=== PATIENT | female | born 1990 | race Two or more races ===

== ENCOUNTER 2019-07-19 17:59 | Emergency (ER) | payer OTHER ==
[~2019-07-19] VITALS: Ht 154.9 cm; Wt 86.2 kg
[2019-07-19 18:55] LABS: BILIRUBIN,URINE NEGATIVE (NEG); CLARITY,URINE TURBID; COLOR,URINE YELLOW; NITRITE,URINE NEGATIVE (NEG); PH,URINE 8.5; PROTEIN,URINE NEGATIVE (NEG-TRACE)
[2019-07-19 19:00] LABS: BACTERIA,URINE 0 /HPF (0-FEW); RBC,URINE 0 /HPF (0-2); SQUAMOUS EPITHELIAL CELL,UR FEW /LPF; WBC,URINE 0 /HPF (0-4)
[2019-07-19 19:01] LABS: AMORPHOUS SEDIMENT,UR PRESENT /HPF
[2019-07-19 19:44] LABS: BASO # 0.1 x10^3/uL (0.0-0.2); BASO % 1 % (0-3); EOS # 0.2 x10^3/uL (0.0-0.7); EOS % 2 % (0-3); HEMATOCRIT 38.8 % (36.0-47.0); HEMOGLOBIN 13.2 g/dL (12.0-15.5); LYMPH # 3.7 x10^3/uL (1.0-4.8); LYMPH % 33 % (24-48); MEAN CORPUSCULAR HEMOGLOBIN 29 pg (25-35); MEAN CORPUSCULAR HGB CONC 34 g/dL (31-37); MEAN CORPUSCULAR VOLUME 85 fL (79-100); MONO # 0.7 x10^3/uL (0.0-1.1); MONO % 6 % (0-9); NEUT # 6.6 x10^3/uL (1.8-7.7); NEUT % 58 % (31-73); PLATELET COUNT 275 x10^3/uL (140-400); RED BLOOD COUNT 4.59 x10^6/uL (3.50-5.40); RED CELL DISTRIBUTION WIDTH 13.3 % (11.5-14.5); WHITE BLOOD COUNT 11.2 x10^3/uL (4.0-11.0)
[2019-07-19 19:52] LABS: CALCIUM 9.1 mg/dL (8.5-10.1); CREATININE 0.8 mg/dL (0.6-1.0); GFR 84.8; POTASSIUM 3.6 mmol/L (3.5-5.1)
[2019-07-19 19:58] LABS: ALBUMIN/GLOBULIN RATIO 1.1 (1.0-1.7); TOTAL BILIRUBIN 0.1 mg/dL (0.2-1.0); TOTAL PROTEIN 7.5 g/dL (6.4-8.2)
--- NOTE | 2019-07-19 20:26 | RAD ---
Exam: Ultrasound OB less than 14 weeks Indication: Abdominal pain and Technique: Real-time grayscale and color Doppler images of the pelvis were obtained by the department burner machine operator. Comparisons: None FINDINGS: Uterus measures 9.0 x 4.8 x 4.4 cm. Endometrium measures 8 mm in thickness. Right ovary measures 4.2 x 2.8 x 2.2 cm. Left ovary measures 3.0 x 2.0 x 1.7 cm. Follicular change in the ovaries bilaterally. Vascular flow identified within the ovaries bilaterally. Small amount of free fluid in the cul-de-sac. IMPRESSION: No gestational sac, pole or yolk sac identified. Intrauterine is not confirmed. Differential considerations include include an early IUP, failed IUP or nonvisualized ectopic. Recommend correlation with serial beta hCG measurements and short-term follow-up ultrasound. Electronically signed by: Kyree Broussard MD (07/19/2019 8:23 PM) [employer]
[2019-07-19 20:41] VITALS: BP 173/81
--- NOTE | 2019-07-19 21:31 | PHYS DOC ---
Past Medical History Past Medical History: No Pertinent History Past Surgical History: No Surgical History Alcohol Use: None Drug Use: None Adult General Chief Complaint Chief Complaint: VAGINAL BLEEDING [facility] Patient is a 28 year old female 6 para 1, 4 miscarriages who presents to the ED today with 8 out of 10 lower abdominal cramping intermittently since Friday. Last menstrual cycle was June 04, 2019. Patient reports 2 weeks ago she had vaginal bleeding which stopped after a couple days. She reports she's been seeing the [facility] and her beta hCGs were doubling since then. She reports on Friday she was seen at [facility] and her beta hCG was 131. Patient denies any vaginal bleeding. Denies any nausea vomiting. Denies any back pain. Review of Systems Review of Systems Constitutional: Denies fever or chills [] Eyes: Denies change in visual acuity, redness, or eye pain [] HENT: Denies nasal congestion or sore throat [] Respiratory: Denies cough or shortness of breath [] Cardiovascular: No additional information not addressed in HPI [] GI: Reports abdominal pain in , denies, nausea, vomiting, bloody stools or diarrhea [] : Denies dysuria or hematuria [] Musculoskeletal: Denies back pain or joint pain [] Integument: Denies rash or skin lesions [] Neurologic: Denies headache, focal weakness or sensory changes [] All other systems were reviewed and found to be within normal limits, except as documented in this note. Allergies Allergies Allergies Coded Allergies Type Severity Reaction Last Updated Verified No Known Drug Allergies 12/14/14 No Physical Exam Physical Exam Constitutional: Well developed, well nourished, no acute distress, non-toxic appearance. [] HENT: Normocephalic, atraumatic, bilateral external ears normal, oropharynx moist, no oral exudates, nose normal. [] Eyes: PERRLA, EOMI, conjunctiva normal, no discharge. [] Neck: Normal range of motion, no tenderness, supple, no stridor. [] Cardiovascular:Heart rate regular rhythm, no murmur [] Lungs & Thorax: Bilateral breath sounds clear to auscultation [] Abdomen: Bowel sounds normal, soft, no tenderness, no masses, no pulsatile masses. [] Pelvic exam External pelvic appears normal, cervix suspicion this, closed, no CMT, no adnexal tenderness, trace amount of white discharge in the vaginal vault Skin: Warm, dry, no erythema, no rash. [] Back: No tenderness, no CVA tenderness. [] Extremities: No tenderness, no cyanosis, no clubbing, ROM intact, no edema. [] Neurologic: Alert and oriented X 3, normal motor function, normal sensory function, no focal deficits noted. [] Psychologic: Affect normal, judgement normal, mood normal. [] Current Patient Data Vital Signs Vital Signs Date Time Temp Pulse Resp B/P (MAP) Pulse Ox O2 Delivery O2 Flow Rate FiO2 07/19/19 20:41 86 16 173/81 (111) 97 Room Air 07/19/19 18:40 98.9 98.9 Lab Values Laboratory Tests Test 07/19/19 18:30 07/19/19 18:51 07/19/19 19:30 Urine Collection Type Unknown Urine Color Yellow Urine Clarity Turbid Urine pH 8.5 Urine Specific [place] 1.025 Urine Protein Negative mg/dL (NEG-TRACE) Urine Glucose (UA) Negative mg/dL (NEG) Urine Ketones (Stick) Negative mg/dL (NEG) Urine Blood Negative (NEG) Urine Nitrite Negative (NEG) Urine Bilirubin Negative (NEG) Urine Urobilinogen Dipstick 1.0 mg/dL (0.2 mg/dL) Urine Leukocyte Esterase Negative (NEG) Urine RBC 0 /HPF (0-2) Urine WBC 0 /HPF (0-4) Urine Squamous Epithelial Cells Few /LPF Urine Amorphous Sediment Present /HPF Urine Bacteria 0 /HPF (0-FEW) Urine Mucus Mod /LPF POC Urine HCG, Qualitative Hcg positive (Negative) White Blood Count 11.2 x10^3/uL (4.0-11.0) H Red Blood Count 4.59 x10^6/uL (3.50-5.40) Hemoglobin 13.2 g/dL (12.0-15.5) Hematocrit 38.8 % (36.0-47.0) Mean Corpuscular Volume 85 fL (79-100) Mean Corpuscular Hemoglobin 29 pg (25-35) Mean Corpuscular Hemoglobin Concent 34 g/dL (31-37) Red Cell Distribution Width 13.3 % (11.5-14.5) Platelet Count 275 x10^3/uL (140-400) Neutrophils (%) (Auto) 58 % (31-73) Lymphocytes (%) (Auto) 33 % (24-48) Monocytes (%) (Auto) 6 % (0-9) Eosinophils (%) (Auto) 2 % (0-3) Basophils (%) (Auto) 1 % (0-3) Neutrophils # (Auto) 6.6 x10^3/uL (1.8-7.7) Lymphocytes # (Auto) 3.7 x10^3/uL (1.0-4.8) Monocytes # (Auto) 0.7 x10^3/uL (0.0-1.1) Eosinophils # (Auto) 0.2 x10^3/uL (0.0-0.7) Basophils # (Auto) 0.1 x10^3/uL (0.0-0.2) Maternal Serum HCG Beta Subunit 121 mIU/mL (0-5) H Sodium Level 139 mmol/L (136-145) Potassium Level 3.6 mmol/L (3.5-5.1) Chloride Level 102 mmol/L (98-107) Carbon Dioxide Level 26 mmol/L (21-32) Anion Gap 11 (6-14) Blood Urea Nitrogen 14 mg/dL (7-20) Creatinine 0.8 mg/dL (0.6-1.0) Estimated GFR (Cockcroft-Gault) 84.8 BUN/Creatinine Ratio 18 (6-20) Glucose Level 104 mg/dL (70-99) H Calcium Level 9.1 mg/dL (8.5-10.1) Total Bilirubin 0.1 mg/dL (0.2-1.0) L Aspartate Amino Transferase (AST) 15 U/L (15-37) Alanine Aminotransferase (ALT) 18 U/L (14-59) Alkaline Phosphatase 70 U/L (46-116) Total Protein 7.5 g/dL (6.4-8.2) Albumin 4.0 g/dL (3.4-5.0) Albumin/Globulin Ratio 1.1 (1.0-1.7) Laboratory Tests 07/19/19 19:30 Laboratory Tests 07/19/19 19:30 Microbiology 07/19/19 Wet Prep - Final, Complete EKG EKG [] Radiology/Procedures Radiology/Procedures []PROCEDURE: OB TRANSVAG Exam: Ultrasound OB less than 14 weeks Indication: Abdominal pain and Technique: Real-time grayscale and color Doppler images of the pelvis were obtained by the department coal crusher operator. Comparisons: None FINDINGS: Uterus measures 9.0 x 4.8 x 4.4 cm. Endometrium measures 8 mm in thickness. Right ovary measures 4.2 x 2.8 x 2.2 cm. Left ovary measures 3.0 x 2.0 x 1.7 cm. Follicular change in the ovaries bilaterally. Vascular flow identified within the ovaries bilaterally. Small amount of free fluid in the cul-de-sac. IMPRESSION: No gestational sac, pole or yolk sac identified. Intrauterine is not confirmed. Differential considerations include include an early IUP, failed IUP or nonvisualized ectopic. Recommend correlation with serial beta hCG measurements and short-term follow-up ultrasound. Electronically signed by: Rupert Handy MD (07/19/2019 8:23 PM) [facility] DICTATED and SIGNED BY: RUPERT HANDY MD DATE: 07/19/192022 Course & Med Decision Making Course & Med Decision Making Pertinent Labs and Imaging studies reviewed. (See chart for details) This is a 28-year-old female patient 6 para 1, 4 miscarriages presenting to the ED today complaining of abdominal pain in . Positive urine hCG, beta-hCG 121. CBC with a WBC of 11.2, normal hemoglobin and hematocrit. CMP-no acute findings Blood group O positive Urine analysis is negative for infection OB ultrasound no gestational sac, pole or yolk sac identified. Intrauterine is not confirmed. Differential considerations include include an early IUP, failed IUP or nonvisualized ectopic. Recommend correlation with serial beta hCG measurements and short-term follow-up ultrasound. Results were given to patient, she is to follow-up with her [facility] in 1-2 days. Dragon Disclaimer Dragon Disclaimer This electronic medical record was generated, in whole or in part, using a voice recognition dictation system. Departure Departure Impression: Primary Impression: Abdominal pain in Disposition: ADMITTED INPATIENT Condition: STABLE Referrals: NO PCP (PCP) follow up with your OBGYN in 1-2 days Patient Instructions: Abdominal Pain During Additional Instructions: You were evaluated in the emergency room for abdominal pain in . Your beta hCG was 121. Your OB ultrasound was unable to identify an intrauterine . As discussed you need to see your [facility] in 1-2 days and have them repeat your beta hCG Problem Qualifiers Primary Impression: Abdominal pain in Trimester: first trimester Qualified Codes: O26.891 - Other specified related conditions, first trimester; R10.9 - Unspecified abdominal pain LEEROY MEYER APRN Jul 19, 2019 21:31
[2019-07-21 20:08] LABS: GC PROBE Negative (Negative)
== END 2019-07-19 21:41 | disposition home or self-care (01) ==
LOC: ER 17:59
DX: O26.891 Other specified pregnancy related conditions, first trimester (principal); R10.30 Lower abdominal pain, unspecified; Z3A.00 Weeks of gestation of pregnancy not specified
CPT/HCPCS: 36415; 76817; 80053; 81001; 81025; 84702; 85025; 86850; 86900; 86901; 87491; 87591; 99285; Q0111

== ENCOUNTER 2019-07-21 23:23 | Emergency (ER) | payer OTHER ==
[~2019-07-21] VITALS: Ht 154.9 cm; Wt 86.2 kg
[2019-07-21 23:30] VITALS: BP 133/73
--- NOTE | 2019-07-21 23:59 | PHYS DOC ---
Past Medical History Past Medical History: No Pertinent History Past Surgical History: No Surgical History Alcohol Use: None Drug Use: None Adult General Chief Complaint Chief Complaint: ABDOMINAL PAIN IN HPI HPI Patient is a 28 year old female who presents with Left lower abdominal pain and spotting. Patient states she was here Friday for the same thing. Patient states that she has left lower abdominal cramping that wraps around to the left lower back. She states it's pretty much a constant there. She rates her pain a 6 out of 10. States the last night once and today once when she wiped after urinating she saw a spot of blood on the told paper. Review of Systems Review of Systems GI: LLQ abdominal pain, denies nausea, vomiting, bloody stools or diarrhea [] : vaginal spotting. Denies dysuria or hematuria [] All other systems were reviewed and found to be within normal limits, except as documented in this note. Allergies Allergies Allergies Coded Allergies Type Severity Reaction Last Updated Verified No Known Drug Allergies 12/14/14 No Physical Exam Physical Exam Constitutional: Well developed, well nourished, no acute distress, non-toxic appearance. [] HENT: Normocephalic, atraumatic, bilateral external ears normal, oropharynx moist, no oral exudates, nose normal. [] Eyes: PERRLA, EOMI, conjunctiva normal, no discharge. [] Neck: Normal range of motion, no tenderness, supple, no stridor. [] Cardiovascular:Heart rate regular rhythm, no murmur [] Lungs & Thorax: Bilateral breath sounds clear to auscultation [] Abdomen: Bowel sounds normal, soft, no tenderness, no masses, no pulsatile masses. [] Skin: Warm, dry, no erythema, no rash. [] Back: No tenderness, no CVA tenderness. [] Extremities: No tenderness, no cyanosis, no clubbing, ROM intact, no edema. [] Neurologic: Alert and oriented X 3, normal motor function, normal sensory function, no focal deficits noted. [] Psychologic: Affect normal, judgement normal, mood normal. Normal Physical Exam [] Current Patient Data Vital Signs Vital Signs Date Time Temp Pulse Resp B/P (MAP) Pulse Ox O2 Delivery O2 Flow Rate FiO2 07/21/19 23:30 98.1 86 16 133/73 (93) 97 Room Air 98.1 Lab Values Laboratory Tests Test 07/21/19 23:52 07/21/19 23:55 POC Urine HCG, Qualitative Hcg positive (Negative) Urine Collection Type Unknown Urine Color Yellow Urine Clarity Cloudy Urine pH 7.0 Urine Specific [place] 1.010 Urine Protein Negative mg/dL (NEG-TRACE) Urine Glucose (UA) 100 mg/dL (NEG) Urine Ketones (Stick) Negative mg/dL (NEG) Urine Blood Negative (NEG) Urine Nitrite Negative (NEG) Urine Bilirubin Negative (NEG) Urine Urobilinogen Dipstick 0.2 mg/dL (0.2 mg/dL) Urine Leukocyte Esterase Negative (NEG) Urine RBC 3-5 /HPF (0-2) Urine WBC Rare /HPF (0-4) Urine Squamous Epithelial Cells Few /LPF Urine Bacteria 0 /HPF (0-FEW) Urine Mucus Slight /LPF EKG EKG [] Radiology/Procedures Radiology/Procedures [] Course & Med Decision Making Course & Med Decision Making She denies dysuria, nausea, vomiting, diarrhea, fever, headache, dizziness, visual changes, numbness or tingling. Abdomen is soft and nontender. No CVA tenderness. Vital signs within normal limits. Ambulatory with a steady gait. Ski n pink warm and dry. Mucous membranes moist. Patient agrees to beta serum blood work and urinalysis and another US of pelvis. 6 Miscarriages in the past. Patient is reported off to Dr Andres at 0026. Dragon Disclaimer Elianeon Disclaimer This electronic medical record was generated, in whole or in part, using a voice recognition dictation system. Departure Departure Referrals: UNKNOWN PCP NAME (PCP) KETAN IRENE ELECTRONICS ENGINEERING MANAGER Jul 21, 2019 23:58
[2019-07-22] LABS: BILIRUBIN,URINE NEGATIVE (NEG); CLARITY,URINE CLOUDY; COLOR,URINE YELLOW; NITRITE,URINE NEGATIVE (NEG); PROTEIN,URINE NEGATIVE (NEG-TRACE); UROBILINOGEN,URINE 0.2 mg/dL (0.2 mg/dL)
[2019-07-22 00:13] LABS: BACTERIA,URINE 0 /HPF (0-FEW); SQUAMOUS EPITHELIAL CELL,UR FEW /LPF; WBC,URINE RARE /HPF (0-4)
--- NOTE | 2019-07-22 01:56 | RAD ---
Obstetric ultrasound transvaginal: Reason for examination: Left-sided pain. Decreasing hCG. Comparison is made to previous study dated 07/19/2019. Transvaginal ultrasound examination of the pelvis was performed. Uterus measures 9.8 x 5.0 x 4.5 cm in greatest dimension. No uterine mass is seen. Endometrium is not thickened. There is no evidence of intrauterine gestational sac. Right ovary measures 4.5 x 2.7 x 2.4 cm in greatest dimension and contains multiple follicles and shows good vascular flow. Left ovary measures 2.9 x 2.5 x 2.1 cm in greatest dimension and contains multiple follicles and shows good vascular flow. There is also a probable 2 cm exophytic cyst or focal free fluid inferior to the left ovary. Small amount of free fluid. IMPRESSION: No evidence of intrauterine or ectopic gestation. Multiple follicles seen in the ovaries bilaterally. Probable 2 cm exophytic cyst or free fluid inferior to the left ovary. Small amount of free fluid in the pelvis. Electronically signed by: Shabana Pike MD (07/22/2019 1:53 AM) [facility]
== END 2019-07-22 02:25 | disposition home or self-care (01) ==
LOC: ER 23:23
DX: O26.851 Spotting complicating pregnancy, first trimester (principal); R10.32 Left lower quadrant pain; Z3A.00 Weeks of gestation of pregnancy not specified
CPT/HCPCS: 36415; 76817; 81001; 81025; 84702; 99285-25

== ENCOUNTER 2019-12-29 14:50 | Emergency (ER) | payer OTHER ==
[~2019-12-29] VITALS: Ht 154.9 cm; Wt 90.0 kg
--- NOTE | 2019-12-29 15:12 | PHYS DOC ---
Past Medical History Past Medical History: Other Additional Past Medical Histor: miscarriages Past Surgical History: No Surgical History Smoking Status: Never Smoker Alcohol Use: None Drug Use: None General Adult EDM: Chief Complaint: VAGINAL BLEEDING HPI: HPI: Patient is a 29 year old female presenting to the ED with a chief complaint of vaginal bleeding. Patient states that she is G7, P1 and is 7 weeks . Patient states that her OB appointment is for 2 weeks after today. Patient states that she started spotting this morning. Patient does not describe it as bleeding. Patient denies abdominal pain, fever, chills, nausea, vomiting. Patient denies alcohol use, smoking or drug use. Review of Systems: Review of Systems: Constitutional: Denies fever or chills. [] Eyes: Denies change in visual acuity. [] HENT: Denies nasal congestion or sore throat. [] Respiratory: Denies cough or shortness of breath. [] Cardiovascular: Denies chest pain or edema. [] GI: Denies abdominal pain, nausea, vomiting, bloody stools or diarrhea. [] : Denies dysuria. Patient does complain of vaginal spotting [] Musculoskeletal: Denies back pain or joint pain. [] Neurologic: Denies headache, focal weakness or sensory changes. [] Heart Score: Risk Factors: Risk Factors: DM, Current or recent (<one month) smoker, HTN, HLP, family history of CAD, obesity. Risk Scores: Score 0 - 3: 2.5% MACE over next 6 weeks - Discharge Home Score 4 - 6: 20.3% MACE over next 6 weeks - Admit for Clinical Observation Score 7 - 10: 72.7% MACE over next 6 weeks - Early Invasive Strategies Allergies: Allergies: Allergies Coded Allergies Type Severity Reaction Last Updated Verified No Known Drug Allergies 12/14/14 No Physical Exam: PE: Constitutional: Well developed, well nourished, no acute distress, non-toxic appearance. [] HENT: Normocephalic, atraumatic Eyes: EOMI Neck: Normal range of motion, Supple Cardiovascular:Heart rate regular rhythm Lungs & Thorax: Bilateral breath sounds clear to auscultation [] Abdomen: Bowel sounds normal, soft, no tenderness, gravid abdomen Extremities: No tenderness, ROM intact Neurologic: Alert and oriented X 3 Current Patient Data: Labs: Laboratory Tests Test 12/29/19 15:10 POC Urine HCG, Qualitative Hcg positive (Negative) Vital Signs: Vital Signs Date Time Temp Pulse Resp B/P (MAP) Pulse Ox O2 Delivery O2 Flow Rate FiO2 12/29/19 14:57 89 16 99 Room Air EKG: EKG: [] Radiology/Procedures: Radiology/Procedures: [] Impression: US shows: Impression: 1. There is a single viable intrauterine , adjusted ultrasound age 6 weeks 6 days with estimated delivery date of 08/17/2020. There is a focus of hypoechogenicity of the uterus, may be focus of subchorionic hemorrhage. There is small quantity of nonspecific free fluid. 2. There is lobulated, avascular cystic focus of the cervix. While this could be a variation of nabothian cyst, this is not clearly demonstrated on previous exam. Course & Med Decision Making: Course & Med Decision Making Pertinent Labs and Imaging studies reviewed. (See chart for details) Ordered labs, UA, Rh, PT, ultrasound of the pelvis. Beta-hCG level is 68,460 Labs otherwise within normal limits. UA does not show UTI. Awaiting ultrasound results. US shows: Impression: 1. There is a single viable intrauterine , adjusted ultrasound age 6 weeks 6 days with estimated delivery date of 08/17/2020. There is a focus of hypoechogenicity of the uterus, may be focus of subchorionic hemorrhage. There is small quantity of nonspecific free fluid. 2. There is lobulated, avascular cystic focus of the cervix. While this could be a variation of nabothian cyst, this is not clearly demonstrated on previous exam. Pt can be discharged home for out patient follow up. Pt recused RH as she says that she had it before and she does not need Rhogam. Discussed results and plan of care with patient. Patient is instructed to follow up with PCP in one to 2 days. Appropriate discharge instructions given to patient to return to the ED or to se ek immediate medical evaluation. Patient is instructed to return to the ED if symptoms worsen or if any concerns. Dragon Disclaimer: [place] Disclaimer: This electronic medical record was generated, in whole or in part, using a voice recognition dictation system. Departure Departure Impression: Primary Impression: Threatened miscarriage in early Additional Impression: Vaginal bleeding affecting early Disposition: HOME, SELF-CARE Condition: STABLE Referrals: NO PCP (PCP) Patient Instructions: Threatened Miscarriage, Vaginal Bleeding During , First Trimester Additional Instructions: Discussed results and plan of care with patient. Patient is instructed to follow up with PCP in one to 2 days. Appropriate discharge instructions given to patient to return to the ED or to seek immediate medical evaluation. Patient is instructed to return to the ED if symptoms worsen or if any concerns. Justicifation of Admission Dx: Justifications for Admission: Justification of Admission Dx: OG Gan DO Dec 29, 2019 15:12
[2019-12-29 15:16] LABS: BILIRUBIN,URINE NEGATIVE (NEG); CLARITY,URINE CLEAR; COLOR,URINE YELLOW; NITRITE,URINE NEGATIVE (NEG); PROTEIN,URINE NEGATIVE (NEG-TRACE)
[2019-12-29 15:19] LABS: BACTERIA,URINE FEW /HPF (0-FEW); SQUAMOUS EPITHELIAL CELL,UR MOD /LPF
[2019-12-29 15:24] LABS: BASO # 0.1 x10^3/uL (0.0-0.2); BASO % 1 % (0-3); EOS # 0.1 x10^3/uL (0.0-0.7); EOS % 1 % (0-3); HEMOGLOBIN 12.8 g/dL (12.0-15.5); LYMPH # 3.3 x10^3/uL (1.0-4.8); LYMPH % 25 % (24-48); MEAN CORPUSCULAR HEMOGLOBIN 29 pg (25-35); MEAN CORPUSCULAR HGB CONC 35 g/dL (31-37); MEAN CORPUSCULAR VOLUME 84 fL (79-100); MONO # 0.8 x10^3/uL (0.0-1.1); MONO % 6 % (0-9); NEUT % 68 % (31-73); PLATELET COUNT 266 x10^3/uL (140-400); RED BLOOD COUNT 4.39 x10^6/uL (3.50-5.40); RED CELL DISTRIBUTION WIDTH 14.1 % (11.5-14.5); WHITE BLOOD COUNT 13.3 x10^3/uL (4.0-11.0)
[2019-12-29 15:32] LABS: PROTHROMBIN TIME PATIENT 12.5 SEC (11.7-14.0)
[2019-12-29 15:33] LABS: CALCIUM 8.7 mg/dL (8.5-10.1); GFR 65.1; POTASSIUM 3.6 mmol/L (3.5-5.1)
[2019-12-29 15:39] LABS: ALBUMIN 3.7 g/dL (3.4-5.0); TOTAL BILIRUBIN 0.3 mg/dL (0.2-1.0); TOTAL PROTEIN 7.5 g/dL (6.4-8.2)
--- NOTE | 2019-12-29 16:26 | RAD ---
OB <14 WKS W/TV History: Vaginal bleeding Comparison: July 22, 2019 Findings: Multiple transabdominal sonographic images of the pelvis are submitted. Left ovary measured 3.3 x 2 x 3.3 cm with normal low resistance vascularity. Uterus measured 7.5 cm transverse. There is a single intrauterine gestational sac. Transvaginal ultrasound: Multiple transvaginal sonographic images of the pelvis are submitted. Uterus measured 10 x 4.2 x 6.8 cm. There is a single gestational sac with identifiable yolk sac and pole. Gestational sac morphology is within normal limits. Amniotic fluid volume is within normal limits. anatomy and placenta are not well visualized at this age of the . There is demonstrable cardiac activity 140 bpm. There is a small focus of hypoechogenicity near gestational sac about 1.2 x 0.5 x 0.8 cm in size. There is small quantity of simple free free fluid in the cul-de-sac. There is now lobulated hypoechoic cystic focus of the cervix, overall dimension about 1.3 x 0.7 cm in size. This is not associated with significant hypervascularity on color Doppler imaging. [place]-rump length measurement of 0.91 cm corresponds 6 weeks 6 days. Gestational sac measurement of 1.92 cm corresponds with 6 weeks 6 days. Adjusted ultrasound age is 6 weeks 6 days with estimated delivery date of 08/17/2020. LMP age is 7 weeks 5 days with estimated delivery date of 08/11/2020 Right ovary measured 1.8 x 2.2 x 2.5 cm with normal low resistance vascularity. Impression: 1. There is a single viable intrauterine , adjusted ultrasound age 6 weeks 6 days with estimated delivery date of 08/17/2020. There is a focus of hypoechogenicity of the uterus, may be focus of subchorionic hemorrhage. There is small quantity of nonspecific free fluid. 2. There is lobulated, avascular cystic focus of the cervix. While this could be a variation of nabothian cyst, this is not clearly demonstrated on previous exam. Electronically signed by: Loc Nguyen MD (12/29/2019 4:23 PM) [id number]
== END 2019-12-29 16:59 | disposition home or self-care (01) ==
LOC: ER 14:50
DX: O20.0 Threatened abortion (principal); Z3A.01 Less than 8 weeks gestation of pregnancy
CPT/HCPCS: 36415; 76801; 76817; 80053; 81001; 81025; 84702; 85025; 85610; 99284-25